=== PATIENT | male | born 1935 | race Caucasian/White ===

== ENCOUNTER → 2017-02-12 | Outpatient (CLI) | payer MEDICARE, OTHER ==
--- NOTE | 2017-02-13 14:12 | RAD ---
EXAM DESCRIPTION: Abdomen Flat Upright CLINICAL HISTORY: 81 years Male, DIARRHEA COMPARISON: None. FINDINGS: There is no free suboptimally gas or intra-abdominal air-fluid level. The gallbladder is surgically absent. Postoperative changes in the mediastinum only partially visualized. The bowel gas pattern is nonobstructive. No suspicious intra-abdominal calcification or mass. IMPRESSION: Negative exam. Electronically signed by: Robert De León MD 02/13/2017 2:12 PM CDT Workstation: [id number]
== END | disposition home or self-care (01) ==
LOC: RAD 16:02
PROVIDERS: ATTEND Surgery
DX: R19.7 Diarrhea, unspecified (principal)

== ENCOUNTER → 2020-09-13 | Outpatient (CLI) | payer OTHER ==
--- NOTE | 2020-09-13 16:39 | RAD ---
EXAM DESCRIPTION: Knee,Right Complete CLINICAL HISTORY: 85 years Male, KNEE PAIN COMPARISON: None. Findings: Four views/radiographs Location: Right knee No acute fracture or dislocation. Joint spaces are maintained. No significant joint effusion. Mild right knee osteoarthritis. Osteopenia. IMPRESSION: No evidence of acute process in the right knee. Electronically signed by: Francesco Sanchez MD 09/13/2020 4:37 PM [facility]
--- NOTE | 2020-09-13 16:41 | RAD ---
EXAM DESCRIPTION: Pelvis CLINICAL HISTORY: 85 years Male, HIP PAIN COMPARISON: None. 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 Osteopenia. Well-corticated ossific density lateral to the right acetabulum measuring 1.4 cm which may reflect heterotopic ossification or remote trauma. No acute fracture lucency identified. No dislocation. Symmetric degenerative changes in the sacroiliac joints. IMPRESSION: Degenerative changes in the pelvis. Electronically signed by: Francesco Sanchez MD 09/13/2020 4:40 PM [facility]
== END ==
LOC: RAD 09:22
PROVIDERS: ATTEND Orthopaedic Surgery
DX: M25.561 Pain in right knee (principal); M25.551 Pain in right hip; M53.3 Sacrococcygeal disorders, not elsewhere classified

== ENCOUNTER 2020-10-02 06:01 | Day surgery (SDC) | payer OTHER ==
[2020-10-02] MEDS ORDERED: PROPOFOL 200 MG/20 ML VIAL IV ONE (06:02)
[2020-10-02] MEDS ORDERED: LIDOCAINE 1% 10 ML VIAL INJ ONE (06:02)
[2020-10-02] MEDS ORDERED: LIDOCAINE 1% W/ EPINEPHRINE 20 ML VIAL INJ ONE ×2 (10:16→13:46)
[2020-10-02] MEDS ORDERED: methylPREDNISolone ACETATE 80 MG/ML VIAL ONE (10:16)
[2020-10-02] MEDS ORDERED: BUPIVACAINE 0.25% INJ 30 ML VIAL INJ ONE ×2 (10:16→13:46)
[2020-10-02] MEDS ORDERED: LACTATED RINGERS 1,000 ML ONE (11:57)
[2020-10-02 12:49] VITALS: O2SAT 98
[2020-10-02] MEDS ORDERED: methylPREDNISolone ACETATE 80 MG/ML VIAL IM ONE (13:46)
[2020-10-02 14:40] VITALS: BP 134/70; TEMP 96.7
--- NOTE | 2020-10-02 17:15 | RAD ---
FL LESS THAN 1 HOUR HISTORY: 85 years Male RIGHT HIP INJECTION COMPARISON: None. 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 See procedure notes for further details. Fluoroscopy time: 5 seconds. Fluoroscopic images: 1. Electronically signed by: Norbert Robbins MD 10/02/2020 5:13 PM [facility]
--- NOTE | 2020-10-03 10:17 | OP ---
DATE OF PROCEDURE: 10/02/00 PREOPERATIVE DIAGNOSIS: 1. Osteoarthritis of the right hip. POSTOPERATIVE DIAGNOSIS: 1. Osteoarthritis of the right hip. PROCEDURE: 1. Intraarticular injection. SURGEON: Danny Paniagua MD. ORE DIGGER: Dixon Ramírez CST, SA-C. ANESTHESIA: Conscious sedation. COMPLICATIONS: None. FINDINGS: Severe osteoarthritis of the hip. INDICATION: Mr. Enriquez has a history of pain associated with arthritis. Because of the pain, we talked about options and he has elected to undergo injection. After discussing the risks, benefits and alternatives to that, the patient has given informed consent for intraarticular injection under anesthesia. PROCEDURE: The patient was brought to the Operating Room and placed in supine position. Conscious sedation was administered and the leg was flexed, abducted and externally rotated. The groin was prepped and fluoroscopic imaging was used to confirm needle placement into the hip joint through a medial portal. Once placement had been confirmed, a combination of lidocaine and Depo-Medrol were injected into the joint. After injection, the needle was withdrawn. Pressure was held on the injection site. A sterile band-aid was placed. The patient was then taken back to the Day Surgery Unit. POSTOPERATIVE PLAN: The patient will be weightbearing as tolerated. The patient will followup with us in 2 days. #[id number] MTDD
== END 2020-10-02 14:48 | disposition home or self-care (01) ==
LOC: AMB 06:01
PROVIDERS: ATTEND Orthopaedic Surgery
DX: M16.11 Unilateral primary osteoarthritis, right hip (principal); F41.9 Anxiety disorder, unspecified; I25.10 Atherosclerotic heart disease of native coronary artery without angina pectoris; I25.2 Old myocardial infarction; Z88.0 Allergy status to penicillin; Z88.5 Allergy status to narcotic agent; Z79.82 Long term (current) use of aspirin; Z79.899 Other long term (current) drug therapy
CPT/HCPCS: 01200; 20610; 76000; 80307; J1030; J3490; J7120